=== PATIENT | female | born 1965 | race Caucasian/White ===

== ENCOUNTER 2019-08-14 08:32 | Day surgery (SDC) | payer OTHER ==
[~2019-08-14 08:32] MED LIST: COZAAR100 MG PO; REQUIP0.5 MG PO; [UNRECOGNIZED DRUG - OTHER] PO
[2019-08-14] MEDS ORDERED: TRAM1TAB98 PO (12:12)
[2019-08-14] MEDS ORDERED: DUI500 PO (12:12)
== END 2019-08-14 16:45 | disposition home or self-care (01) ==
LOC: CIR.AMB 08:32 → SURH 09:22 → EDSTATUS 09:51 → CIR.AMB 09:53
DX: S82.61XA Displaced fracture of lateral malleolus of right fibula, initial encounter for closed fracture (principal)